=== PATIENT | male | born 2000 | race Caucasian/White ===

== ENCOUNTER 2023-10-24 00:37 | Emergency (ER) | payer SELFPAY ==
[2023-10-24 00:45] VITALS: BP 138/82; PULSE 79; RESP 20; TEMP 98.4; BMI 31.0
[2023-10-24] MEDS ORDERED: ACETAMINOPHEN 325 MG TABLET (FP) ONE (01:17)
[2023-10-24] MEDS ORDERED: LIDOCAINE 4% PATCH TP ONE (01:18)
[2023-10-24] MEDS: ACETAMINOPHEN 500 MG TABLET (FP) PO ONE (01:19)
[2023-10-24] MEDS: LIDOCAINE 5% TOPICAL PATCH TP ONE (01:27)
[2023-10-24] MEDS ORDERED: METHOCARBAMOL 500 MG TABLET ONE (01:36)
[2023-10-24] MEDS: METHOCARBAMOL 500 MG TABLET PO ONE (01:37)
[2023-10-24] MEDS ORDERED: LIDOCAINE PATCH REMOVAL MC SCH (22:00)
== END 2023-10-24 02:30 | disposition home or self-care (01) ==
LOC: JER 00:37
DX: M25.551 Pain in right hip (principal)
CPT/HCPCS: 73502-TC-RT-FY; 99283-25